=== PATIENT | female | born 1950 | race Caucasian/White ===

== ENCOUNTER 2022-08-23 22:39 | Emergency (ER) | payer OTHER ==
[~2022-08-23] VITALS: Ht 190.5 cm; Wt 68.0 kg
--- NOTE | 2022-08-23 23:10 | NUR ---
PT FROM HOME WITH C/O MECHICAL FALL. PT REPORTS NOT REMEMBERING THE FALL. LAC NOTED TO THE RIGHT FOREHEAD, BLEEDING CONTROLLED. A&O X4, VSS, AND FOLLOWING COMMANDS.
--- NOTE | 2022-08-23 23:10 | NUR ---
Patient to ER bed 01 to gown for evaluation. Side rails up.
[2022-08-23 23:13] VITALS: BP_SYST 159
[2022-08-23] MEDS ORDERED: DIPHTH,PERTUSS(ACELL),TET VAC 0.5 ML VIAL (Tdap) I.M. ONE (23:15)
[2022-08-23] MEDS ORDERED: LIDOCAINE 1% 10 MG/ML, 20 ML MDV INJ ONE (23:15)
--- NOTE | 2022-08-24 01:19 | NUR ---
Patient given written and verbal discharge instructions and verbalizes understanding. ER MD DR. HINKLE discussed with patient the results and treatment provided. Patient in stable condition. ID arm band removed. Rx of given. Patient educated on pain management and to follow up with PMD. Opportunity for questions provided and answered. Medication side effect fact sheet provided.
[2022-08-24 01:21] VITALS: BP_SYST 148
== END 2022-08-24 01:18 | disposition home or self-care (01) ==
LOC: SED 22:39
DX: S01.81XA Laceration without foreign body of other part of head, initial encounter (principal); Z79.899 Other long term (current) drug therapy; W18.30XA Fall on same level, unspecified, initial encounter; Y93.89 Activity, other specified; Y92.89 Other specified places as the place of occurrence of the external cause; Y99.8 Other external cause status
CPT/HCPCS: 99284; 70450; 76376; 90715; 90471; 12011; J2001